=== PATIENT | female | born 1945 | race Caucasian/White ===

== ENCOUNTER → 2017-09-28 | Outpatient (CLI) | payer MEDICARE, BC | LOC: COL.RAD 11:21 | DX: I77.810 Thoracic aortic ectasia (principal); R93.8 Abnormal findings on diagnostic imaging of other specified body structures; I77.89 Other specified disorders of arteries and arterioles | CPT/HCPCS: Q9967 ==

== ENCOUNTER → 2018-05-29 | Outpatient (CLI) | payer MEDICARE, BC | LOC: COL.RAD 10:22 | DX: R91.8 Other nonspecific abnormal finding of lung field (principal) | CPT/HCPCS: Q9967 ==

== ENCOUNTER → 2018-08-02 | Outpatient (CLI) | payer MEDICARE, BC | LOC: MC.RAD 12:45 | DX: N63.13 Unspecified lump in the right breast, lower outer quadrant (principal); N63.10 Unspecified lump in the right breast, unspecified quadrant | CPT/HCPCS: G0279 ==

== ENCOUNTER → 2018-11-22 | Outpatient (CLI) | payer MEDICARE, BC | LOC: COL.RAD 07:23 | DX: R91.8 Other nonspecific abnormal finding of lung field (principal) | CPT/HCPCS: Q9967 ==

== ENCOUNTER → 2019-08-07 | Outpatient (CLI) | payer MEDICARE, BC | LOC: COL.RAD 13:00 | DX: N32.89 Other specified disorders of bladder (principal); G89.18 Other acute postprocedural pain; K57.30 Diverticulosis of large intestine without perforation or abscess without bleeding; M47.816 Spondylosis without myelopathy or radiculopathy, lumbar region; Z90.710 Acquired absence of both cervix and uterus ==